=== PATIENT | male | born 1965 | race Caucasian/White ===

== ENCOUNTER 2024-08-16 15:51 | Inpatient (IN) ==
--- NOTE | 2024-08-16 16:00 | ED Triage Note ---
Date of Service August 16, 2024 Provider in Triage Author: Phil Suazo History of Present Illness This patient was briefly evaluated while in triage. An abbreviated physical exam was performed. This patient is a 59-year-old Male who presents to the ED for evaluation shortness of breath x 3 weeks dizziness/lightheaded with exertion, midsternal chest pain smoker denies PMHx-"hasn't seen a doctor in 30 years" Physical Exam GENERAL: NAD CARDIOVASCULAR: RRR RESPIRATORY: CTA ABDOMEN: BS x 4. Nontender to palpation. Initial orders for labs and / or imaging were placed and patient was placed in the waiting area until a bed is available. Please see further documentation for the full ED course.
[2024-08-16] MEDS: ASPIRIN 81 MG CHEW PO STA (16:14)
[2024-08-16 16:25] LABS: Basophils # (auto) 0.02 K/uL (0.00-0.20); Basophils % (auto) 0.2 %; Eosinophils # (auto) 0.02 K/uL (0.00-0.50); Eosinophils % (auto) 0.2 %; Hematocrit (blood only) 43.7 % (42.0-52.0); Hemoglobin 14.3 g/dl (14.0-18.0); Immature Granulocytes # (auto) 0.04 K/uL (0.01-0.20); Immature Granulocytes % (auto) 0.4 %; Lymphocytes # (auto) 1.02 K/uL (1.20-3.40); Lymphocytes % (auto) 9.7 %; Mean Corpuscular Hemoglobin 28.8 pg (25.0-34.0); Mean Corpuscular Hgb Conc 32.7 g/dL (32.0-36.0); Mean Corpuscular Volume 88.1 fL (80.0-100.0); Mean Platelet Volume 11.2 fL (9.4-12.4); Monocytes % (auto) 4.7 %; Neutrophils # (auto) 8.93 K/uL (1.40-6.50); Neutrophils % (auto) 84.8 %; Platelet Count 329 K/uL (130-400); RDW Coefficient of Variation 12.5 % (11.5-14.5); RDW Standard Deviation 40.5 fL (36.4-46.3); Red Blood Count 4.96 M/uL (4.70-6.10); White Blood Count 10.53 K/ul (4.8-10.8)
[2024-08-16 16:43] LABS: Albumin Globulin Ratio 1.3 (0.9-2); Albumin Level 4.3 gm/dl (3.4-5.0); BUN Creatinine Ratio 12.8 (10-20); Bilirubin,Total 0.5 mg/dl (0.2-1.0); Calcium 9.5 mg/dl (8.6-10.3); Creatinine Clr Calc Pharmacy 66.6 ml/min; Globulin 3.3 gm/dl (2.5-4.0); Potassium 4.3 mmol/L (3.5-5.1); Total Protein 7.6 gm/dl (6.0-8.3)
[2024-08-16 17:11] LABS: Adenovirus PCR Not Detected (NotDetected); Bordetella parapertussis PCR Not Detected (NotDetected); Bordetella pertussis PCR Not Detected (NotDetected); Chlamydia pneumoniae PCR Not Detected (NotDetected); Coronavirus 229E PCR Not Detected (NotDetected); Coronavirus CoV-2 (COVID19)PCR Not Detected (NotDetected); Coronavirus HKU1 PCR Not Detected (NotDetected); Coronavirus NL63 PCR Not Detected (NotDetected); Coronavirus OC43PCR Not Detected (NotDetected); Human Metapneumovirus PCR Not Detected (NotDetected); Influenza A PCR Not Detected (NotDetected); Influenza B PCR Not Detected (NotDetected); Mycoplasma pneumoniae PCR Not Detected (NotDetected); Parainfluenza Virus 1 PCR Not Detected (NotDetected); Parainfluenza Virus 2 PCR Not Detected (NotDetected); Parainfluenza Virus 3 PCR Not Detected (NotDetected); Parainfluenza Virus 4 PCR Not Detected (NotDetected); Respiratory Syncytial VirusPCR Not Detected (NotDetected); Rhinovirus/Enterovirus PCR Not Detected (NotDetected)
[2024-08-16 17:12] LABS: Troponin I High Sensitivity 3627.6 pg/ml (0-20)
[2024-08-16 17:13] LABS: D Dimer 880 ug/L FEU (0-500)
--- NOTE | 2024-08-16 17:29 | XRay Report ---
EXAM: XR chest 1V not portable CLINICAL HISTORY: Chest pain, sob TECHNIQUE: An X-ray image of the chest is obtained in AP projection. COMPARISON: No prior studies are available for comparison. FINDINGS: Pulmonary Parenchyma: Prominent right hilum and bilateral bronchovascular markings mainly on basal aspects suggestive of pulmonary congestion. Otherwise, lungs are clear bilaterally. No evidence of consolidation, collapse, or focal opacities. Clear costophrenic angles on both sides. Heart and Mediastinum: Mild cardiomegaly is noted. Bony Thorax: Bony thorax appears intact without fractures or deformities. Soft Tissues: Soft tissues overlying the chest wall are unremarkable. IMPRESSION: 1. Prominent right hilum and bilateral bronchovascular markings mainly on basal aspects suggestive of pulmonary congestion. 2. Mild cardiomegaly. Electronically signed by Marilee Norris 08-16-2024 5:28 PM
[2024-08-16] MEDS: OPTIRAY 320 125ml IV ONE (17:40)
--- NOTE | 2024-08-16 17:55 | CT Scan Report ---
Clinical history: Rule out pulmonary embolism Technique: Axial computed tomography images were obtained of the chest after the administration of intravenous contrast according to the CT angiogram protocol Findings: There is no definite sign of pulmonary embolism. There is a 4 mm left lower lobe nodule and there is a 6 mm right lower lobe nodule. There is a cluster of nodules in a centrilobular distribution with mild surrounding groundglass opacity in the right upper lobe. There are small bilateral pleural effusions. There is no pneumothorax. There is mild pulmonary edema. No endobronchial lesion is seen There is no mediastinal, hilar, or axillary adenopathy. The thoracic aorta appears unremarkable with no sign of aneurysm or dissection. There is no pericardial effusion The visualized upper abdomen appears unremarkable. No fracture is seen. No focal osseous lesion is evident Impression: 1. No definite sign of pulmonary embolism 2. Mild pulmonary edema and small bilateral pleural effusions 3. Cluster of nodules in the right upper lobe, likely due to pneumonia. There are bilateral lower lobe nodules as well. A follow-up chest CT is recommended in 3-6 months to ensure resolution Electronically signed by Josr Ndiaye 08-16-2024 5:54 PM
--- NOTE | 2024-08-16 18:10 | Emergency Department Note ---
Impression & Plan NSTEMI (non-ST elevated myocardial infarction), Abnormal CT scan, chest ED Provider Note NAME: PAULO PATEL AGE: 59 SEX: M : 1965 ARRIVES VIA: Walk-In INFORMANT: Patient, ED PROVIDER(S): Anahy Michaud MD CHIEF COMPLAINT: Chest pain, weakness HPI: This is a 59-year-old male presenting for 3 weeks of chest pain/shortness of breath and weakness. Patient notes that whenever he does physical exertion including walking, working on cars he begins feeling chest pain in the center of his chest physical burning sensation. He also notes exertional dyspnea. He notes weakness/pain in bilateral arms with exertion as well. He reports no previous cardiac history. ROS: See above HPI for pertinent positives & negatives. A total of 10 systems reviewed and were otherwise negative. PAST MEDICAL HISTORY: See Below PAST SURGICAL HISTORY: See Below FAMILY HISTORY: See Below SOCIAL HISTORY: See Below HOME MEDICATIONS: See Below ALLERGIES: See Below VITALS: See Below PHYSICAL EXAMINATION: General: resting comfortably in no acute distress Head: Normocephalic and atraumatic Eyes: Normal inspection, extraocular muscles intact Ear, nose, throat: Normal external exam Neck: Normal range of motion Respiratory: lungs clear to auscultation bilaterally Cardiovascular: Regular rate/rhythm, no murmur GI: soft, nontender, no guarding or rebound Extremities: nontender, moves all extremities Neuro: The patient awake and alert, appropriately conversive, no focal deficits, symmetric faces Skin: Warm, dry, and intact MEDICAL DECISION MAKING: This is a 59-year-old presenting for 3 weeks of shortness of breath, chest pain. I was advised to come to bedside as patient was in the waiting room with elevated reported over 3600. -At this time patient is currently chest pain-free. He received aspirin prior. -Will continue with CT as patient is D-dimer positive. Lower concern for this as he is not tachypneic, tachycardic or hypoxic -Chest Xray independently interpreted by me showing cardiomegaly no pneumothorax, focal opacity, or pleural effusions. -CTA reveals no acute PE, did show signs of pulmonary edema/bilateral pleural effusions. -ECG independently interpreted by me with normal sinus rhythm, rate of 75, left axis deviation, normal NV, normal QRS, normal QTc, no ST segment elevations consistent with STEMI criteria, marked T wave inversions in the inferior leads with slight ST depression -Patient started on IV heparin bolus and drip due to the elevated troponin, EKG concerning for ischemia. Patient currently chest pain-free however -Discussed care with jah Ralph for [facility] service for admission Differential diagnosis: ACS, PE, sepsis, pneumonia Independent History obtained from: Diagnostics interpreted by me: ECG: None Cardiac Monitoring: An order was placed for continuous cardiac monitoring. The monitor shows a rate of 71 with sinus rhythm. Critical Care Note: I have personally spent 35 minutes of critical care time in the direct management of this patient. This includes bedside care, interpretation of diagnostic studies, and testing, discussion with consultants, patient, and family members, and other required patient management activities. This 35 minutes is in excess of all separately billable procedures. Past Med/Surg History Problem List (Updated 08/17/24 @ 09:31 by Levi Nleson DO) Dyslipidemia Acute HFrEF (heart failure with reduced ejection fraction) Abnormal CT scan, chest NSTEMI (non-ST elevated myocardial infarction) Medical History Tobacco use Family History Mother Hypertension Coronary heart disease CABG in early 70's Father Coronary heart disease CABG ~age 72 Social History Smoking Status: Current every day smoker Tobacco Type: Cigarettes Cigarettes Per Day: 10 for 30 years; Second Hand Exposure: No; Do You Dip or Chew Tobacco: No; Tobacco Cessation Education Requested by Patient: No Hx Alcohol Use: No Hx Substance Use: No Preferred Language: Bengali Communication Ability: Effective Senior Buyer Required: No Beliefs That Will Affect Care: None Current Living Situation: Significant Other Other Information That Helps Us Care for You: No Feels Safe at Home: Yes Safety Concerns: Feels Safe At This Time Assistive Devices: Glasses Allergies Allergies Allergy/AdvReac Type Severity Reaction Status Date / Time No Known Allergies Allergy Verified 08/16/24 22:38 Home Meds Home Medications Medication Instructions Recorded Confirmed No Known Home Medications 08/16/24 08/16/24 Results & Data (ED) Vital Signs Vital Signs - 24 hr 08/16/24 15:57 08/16/24 17:22 08/16/24 17:24 Temperature 36.6 C Temperature Source Temporal Artery Scan Pulse Rate 100 H Pulse Rate [Apical] 98 H Pulse Rate from SpO2 Sensor Respiratory Rate 19 18 Respiratory Effort / Characteristics Non-Labored Spontaneous Respiratory Depth Normal Blood Pressure 165/121 H Blood Pressure [Left Arm] 157/116 H Blood Pressure Mean 135 Blood Pressure Mean [Left Arm] 129 Pulse Oximetry 97 98 97 Oxygen Delivery Method Room Air Room Air Room Air Sepsis Recent Fever Within 48 Hours No Sepsis New/Unexplained Change in Mental Status N/A Sepsis Action Taken by Nursing No Action Required 08/16/24 17:25 08/16/24 17:45 08/16/24 17:45 Temperature Temperature Source Pulse Rate 92 H 88 Pulse Rate [Apical] Pulse Rate from SpO2 Sensor 86 Respiratory Rate 19 Respiratory Effort / Characteristics Respiratory Depth Blood Pressure 141/108 H Blood Pressure [Left Arm] Blood Pressure Mean 115 Blood Pressure Mean [Left Arm] Pulse Oximetry 95 Oxygen Delivery Method Sepsis Recent Fever Within 48 Hours Sepsis New/Unexplained Change in Mental Status Sepsis Action Taken by Nursing 08/16/24 18:00 08/16/24 18:00 Temperature Temperature Source Pulse Rate 80 Pulse Rate [Apical] Pulse Rate from SpO2 Sensor 80 Respiratory Rate 13 Respiratory Effort / Characteristics Respiratory Depth Blood Pressure 130/93 Blood Pressure [Left Arm] Blood Pressure Mean 103 Blood Pressure Mean [Left Arm] Pulse Oximetry 95 Oxygen Delivery Method Sepsis Recent Fever Within 48 Hours Sepsis New/Unexplained Change in Mental Status Sepsis Action Taken by Nursing Laboratory Data 08/17/24 08:24 08/17/24 08:24 Lab Results 08/16/24 08/16/24 Range/Units 16:11 18:15 WBC 10.53 (4.8-10.8) K/ul RBC 4.96 (4.70-6.10) M/uL Hgb 14.3 (14.0-18.0) g/dl Hct 43.7 (42.0-52.0) % MCV 88.1 (80.0-100.0) fL MCH 28.8 (25.0-34.0) pg MCHC 32.7 (32.0-36.0) g/dL RDW Std Deviation 40.5 (36.4-46.3) fL RDW Coeff of Charles 12.5 (11.5-14.5) % Plt Count 329 (130-400) K/uL MPV 11.2 (9.4-12.4) fL Immature Gran % (Auto) 0.4 % Neut % (Auto) 84.8 % Lymph % (Auto) 9.7 % Knox % (Auto) 4.7 % Eos % (Auto) 0.2 % Baso % (Auto) 0.2 % Neut # (Auto) 8.93 H (1.40-6.50) K/uL Lymph # (Auto) 1.02 L (1.20-3.40) K/uL Knox # (Auto) 0.50 (0.11-0.59) K/uL Eos # (Auto) 0.02 (0.00-0.50) K/uL Baso # (Auto) 0.02 (0.00-0.20) K/uL Immature Gran # (Auto) 0.04 (0.01-0.20) K/uL PT 11.0 (9.0-12.0) Seconds INR 1.0 (0.9-1.1) APTT 27 (21-31) Seconds PTT Ratio 1.0 D-Dimer 880 H* (0-500) ug/L FEU Sodium 143 (136-145) mmol/L Potassium 4.3 (3.5-5.1) mmol/L Chloride 107 (98-107) mmol/L Carbon Dioxide 29 (21-32) mmol/L Anion Gap 7 (3-11) BUN 15 (6-23) mg/dl Creatinine 1.17 (0.6-1.4) mg/dl Est Cr Clr Drug Dosing 66.6 ml/min eGFR 72.26 BUN/Creatinine Ratio 12.8 (10-20) Glucose 102 H (70-99(Fasting)) mg/dl Calcium 9.5 (8.6-10.3) mg/dl Total Bilirubin 0.5 (0.2-1.0) mg/dl AST 24 (13-39) U/L ALT 16 (7-52) U/L Alkaline Phosphatase 36 (34-104) U/L Troponin I High Sens 3627.6 H* 3589.0 H* (0-20) pg/ml Total Protein 7.6 (6.0-8.3) gm/dl Albumin 4.3 (3.4-5.0) gm/dl Globulin 3.3 (2.5-4.0) gm/dl Albumin/Globulin Ratio 1.3 (0.9-2) Adenovirus (PCR) Not Detected (NotDetected) B. pertussis DNA (PCR) Not Detected (NotDetected) B.parapertussis DNA PCR Not Detected (NotDetected) C. pneumoniae DNA (PCR) Not Detected (NotDetected) Coronavirus OC43 (PCR) Not Detected (NotDetected) Coronavirus HKU1 (PCR) Not Detected (NotDetected) Coronavirus 229E (PCR) Not Detected (NotDetected) SARS-CoV-2 (PCR) Not Detected (NotDetected) Coronavirus NL63 (PCR) Not Detected (NotDetected) Human Metapneumovir PCR Not Detected (NotDetected) Influenza Type A (PCR) Not Detected (NotDetected) Influenza Type B (PCR) Not Detected (NotDetected) M. pneumoniae (PCR) Not Detected (NotDetected) Parainfluenza 1 (PCR) Not Detected (NotDetected) Parainfluenza 2 (PCR) Not Detected (NotDetected) Parainfluenza 3 (PCR) Not Detected (NotDetected) Parainfluenza 4 (PCR) Not Detected (NotDetected) RSV (PCR) Not Detected (NotDetected) Entero/Rhino (PCR) Not Detected (NotDetected) Administered Medications Aspirin (Aspirin 81 Mg Ectab) [facility] [place] Stop: 09/16/24 08:59 Last Admin: 08/17/24 08:03 Dose: 81 mg Documented By: JONATHAN Heparin Sodium/Dextrose (Heparin 41132 Unit/500 Ml D5w) 25,000 units in 500 mls @ 18 mls/hr IV .Q24H [facility]; Protocol Stop: 09/15/24 18:14 Last Titration: 08/17/24 07:08 Dose: 900 units/hr, 18 mls/hr Documented By: ZAC Co-signed By: JONATHAN Titration: 08/17/24 01:14 Dose: 900 units/hr, 18 mls/hr Documented By: CF Co-signed By: KRYSTINA Admin: 08/16/24 18:51 Dose: 850 units/hr, 17 mls/hr Documented By: MATILDA Co-signed By: Discontinued Medications Aspirin (Aspirin 81 Mg Chew) 324 mg PO NOW STA Stop: 08/16/24 16:01 Last Admin: 08/16/24 16:14 Dose: 324 mg Documented By: ORLY Heparin Sodium (Porcine) (Heparin Sod (Porcine) 1000 Unit/Ml) 1 units IV NOW ONE Stop: 08/16/24 18:15 Last Admin: 08/16/24 18:51 Dose: 4,000 units Documented By: MATILDA Co-signed By: HUNTER Heparin Sodium/Dextrose (Heparin Iv Adult Wt-Based Low-Dose W/ Initial Bolus Protocol) 1 each IV NOW STA; Protocol Stop: 08/16/24 18:00 Last Admin: 08/16/24 19:36 Dose: Not Given Documented By: HUNTER Ceftriaxone Sodium (Rocephin) 2,000 mg in 50 mls @ 100 mls/hr IV NOW STA Stop: 08/16/24 19:49 Last Infusion: 08/16/24 22:05 Dose: Infused Documented By: Admin: 08/16/24 20:01 Dose: 100 mls/hr Documented By: CTK Ioversol (Optiray 320 125ml) 119 ml IV ONCE ONE Stop: 08/16/24 17:40 Last Admin: 08/16/24 17:40 Dose: 119 ml Documented By: GES Imaging Data Radiologist's Impression: Chest X-Ray 08/16/24 16:00 EXAM: XR chest 1V not portable CLINICAL HISTORY: Chest pain, sob TECHNIQUE: An X-ray image of the chest is obtained in AP projection. COMPARISON: No prior studies are available for comparison. FINDINGS: Pulmonary Parenchyma: Prominent right hilum and bilateral bronchovascular markings mainly on basal aspects suggestive of pulmonary congestion. Otherwise, lungs are clear bilaterally. No evidence of consolidation, collapse, or focal opacities. Clear costophrenic angles on both sides. Heart and Mediastinum: Mild cardiomegaly is noted. Bony Thorax: Bony thorax appears intact without fractures or deformities. Soft Tissues: Soft tissues overlying the chest wall are unremarkable. IMPRESSION: 1. Prominent right hilum and bilateral bronchovascular markings mainly on basal aspects suggestive of pulmonary congestion. 2. Mild cardiomegaly. Electronically signed by Marilee Norris 08-16-2024 5:28 PM Chest CTA 08/16/24 17:29 Clinical history: Rule out pulmonary embolism Technique: Axial computed tomography images were obtained of the chest after the administration of intravenous contrast according to the CT angiogram protocol Findings: There is no definite sign of pulmonary embolism. There is a 4 mm left lower lobe nodule and there is a 6 mm right lower lobe nodule. There is a cluster of nodules in a centrilobular distribution with mild surrounding groundglass opacity in the right upper lobe. There are small bilateral pleural effusions. There is no pneumothorax. There is mild pulmonary edema. No endobronchial lesion is seen There is no mediastinal, hilar, or axillary adenopathy. The thoracic aorta appears unremarkable with no sign of aneurysm or dissection. There is no pericardial effusion The visualized upper abdomen appears unremarkable. No fracture is seen. No focal osseous lesion is evident Impression: 1. No definite sign of pulmonary embolism 2. Mild pulmonary edema and small bilateral pleural effusions 3. Cluster of nodules in the right upper lobe, likely due to pneumonia. There are bilateral lower lobe nodules as well. A follow-up chest CT is recommended in 3-6 months to ensure resolution Electronically signed by Josr Ndiaye 08-16-2024 5:54 PM Discharge Plan Visit Data Chief Complaint: Shortness of Breath/Dyspnea Stated Complaint: SOB, CHEST, WEAKNESS, ARM PAIN, LIGHTHEADED, ED Provider: Anahy Michaud Discharge Problem: NSTEMI (non-ST elevated myocardial infarction), Abnormal CT scan, chest Patient Disposition: Admitted As Inpatient Discharge Instructions Interventions: ED Discharge Assessment Last Done: 08/16/24 21:19
--- NOTE | 2024-08-16 18:25 | History & Physical Report ---
Date of Service August 16, 2024 Assessment & Plan (1) NSTEMI (non-ST elevated myocardial infarction): Plan: Patient is 59-year-old male with PMH tobacco use presented to ER with c/o exertional CP, SOB, dizziness, bilateral forearm pain x 3 weeks that resolves with rest In ER afebrile, P: 100, R: 18, BP 165/121, 97% on room air Negative respiratory biofire panel D-dimer: 880 Troponin: 3627 EKG: Q waves septal anterior and T wave inversion lateral leads per my interpretation CXR: . Prominent right hilum and bilateral bronchovascular markings mainly on basal aspects suggestive of pulmonary congestion. Mild cardiomegaly. CTA Chest: No definite sign of pulmonary embolism. Mild pulmonary edema and small bilateral pleural effusions. Cluster of nodules in the right upper lobe, likely due to pneumonia. There are bilateral lower lobe nodules as well. In ER given aspirin 324mg po and IV heparin started No CP while in ER Monitor Vitals Repeat EKG in am Will trend troponin Continue IV Heparin Echo Lipid panel in am Aspirin NPO midnight Cardiology consult. Dr Nelson suggest NPO midnight CBC, BMP in am (2) Tobacco use: Plan: Attempting smoking cessation Denies nicotine patch (3) Abnormal CT scan, chest: Plan: CTA Chest: Cluster of nodules in the right upper lobe, likely due to pneumonia. There are bilateral lower lobe nodules as well. Denies fever/chills, cough Will start Rocephin to cover possible pneumonia Will need a follow-up chest CT in 3-6 months to recheck nodules DVT Prophylaxis On IV Heparin Admit PCU Full Code as per discussion with pt Does not follow with for routine care Pt was seen and care coordinated with Dr Reynoso. See addendum I spent a total of 60 minutes reviewing notes, outpatient records, labs, medication, coordinating, documenting and providing care for this patient excluding time spent in the performance of separately billed services and excluding time spent by another provider/QHP. History of Present Illness Chief Complaint: CP Primary Care Provider: NO PCP Patient is 59-year-old male with PMH tobacco use presented to ER with c/o exertional CP x 3 weeks. States has not been to the doctor in over 7 years. Prior to that he denies any known diagnosis of HTN or dyslipidemia or diabetes. Reports exertional shortness of breath and anterior chest pain with associated dizziness and bilateral forearm aching that occurs with exertion and resolves after 5 minutes of rest. 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 States over the past 3 weeks symptoms has progressed and past couple days getting symptoms with simple ADLs such as dressing himself. Symptoms still resolved in approximately 5 minutes after rest. Denies any active CP while in ER. Denies fever/chills, diaphoresis, N/V/D/C, CROSS, syncope, vision changes, neck pain, palpitations, cough, sore throat, choking, otalgia, rhinorrhea, abdominal pain, paresthesias, extremity weakness, extremity edema, rashes, urinary symptoms. Allergies Allergy/AdvReac Type Severity Reaction Status Date / Time N Allergy Unknown Uncoded 08/17/02 15:38 NONE Allergy Unknown Uncoded 08/17/02 15:38 Past Med/Surg History Problem List (Updated 08/16/24 @ 19:36 by Colleen Greene PA-C) Abnormal CT scan, chest NSTEMI (non-ST elevated myocardial infarction) Medical History Tobacco use Family History (Updated 08/16/24 @ 19:34 by Colleen Greene PA-C) Mother Hypertension Coronary heart disease CABG in early 70's Father Coronary heart disease CABG ~age 72 Social History (Updated 08/16/24 @ 19:34 by Colleen Greene PA-C) Smoking Status: Never smoker Cigarettes Per Day: 0.5-1ppd. Cutting back to 0.5ppd; Hx Alcohol Use: No Hx Substance Use: No Preferred Language: Occitan Feels Safe at Home: Yes Review of Systems Review of Systems: All systems reviewed & are unremarkable except as noted in HPI & below Physical Exam Physical Exam: General: no acute distress, WDWN Head: normocephalic, atraumatic Eyes: conjunctiva non-injected, anicteric ENT: normal inspection external ears, nose, mucous membranes moist Neck: supple, trachea midline Lungs: clear, no respiratory distress, no wheezing/rhonchi/rales CV: RRR, no murmur, no pretibial edema Abd: normal BS, soft, non-tender Ext: no cyanosis, no calf tenderness Neuro: A&O x 3, no focal deficits noted, normal affect Skin: warm, dry Results & Data Results & Data Vital Signs (Past 12 Hours) Vital Signs Temp Pulse Pulse Resp BP BP Pulse Ox 08/16/24 17:25 92 H 08/16/24 17:24 98 H 18 157/116 H 97 08/16/24 17:22 98 08/16/24 15:57 36.6 C 100 H 19 165/121 H 97 O2 Del Method 08/16/24 17:25 08/16/24 17:24 Room Air 08/16/24 17:22 Room Air 08/16/24 15:57 Room Air Laboratory Results Short CBC 08/16/24 Range/Units 16:11 WBC 10.53 (4.8-10.8) K/ul Hgb 14.3 (14.0-18.0) g/dl Hct 43.7 (42.0-52.0) % Plt Count 329 (130-400) K/uL BMP 08/16/24 16:11 Sodium 143 Potassium 4.3 Chloride 107 Carbon Dioxide 29 BUN 15 Creatinine 1.17 Glucose 102 H Calcium 9.5 Liver Function 08/16/24 Range/Units 16:11 Total Bilirubin 0.5 (0.2-1.0) mg/dl AST 24 (13-39) U/L ALT 16 (7-52) U/L Alkaline Phosphatase 36 (34-104) U/L Albumin 4.3 (3.4-5.0) gm/dl Diagnostic Findings Chest X-Ray 08/16/24 16:00 EXAM: XR chest 1V not portable CLINICAL HISTORY: Chest pain, sob TECHNIQUE: An X-ray image of the chest is obtained in AP projection. COMPARISON: No prior studies are available for comparison. FINDINGS: Pulmonary Parenchyma: Prominent right hilum and bilateral bronchovascular markings mainly on basal aspects suggestive of pulmonary congestion. Otherwise, lungs are clear bilaterally. No evidence of consolidation, collapse, or focal opacities. Clear costophrenic angles on both sides. Heart and Mediastinum: Mild cardiomegaly is noted. Bony Thorax: Bony thorax appears intact without fractures or deformities. Soft Tissues: Soft tissues overlying the chest wall are unremarkable. IMPRESSION: 1. Prominent right hilum and bilateral bronchovascular markings mainly on basal aspects suggestive of pulmonary congestion. 2. Mild cardiomegaly. Electronically signed by Marilee Norris 08-16-2024 5:28 PM Chest CTA 08/16/24 17:29 Clinical history: Rule out pulmonary embolism Technique: Axial computed tomography images were obtained of the chest after the administration of intravenous contrast according to the CT angiogram protocol Findings: There is no definite sign of pulmonary embolism. There is a 4 mm left lower lobe nodule and there is a 6 mm right lower lobe nodule. There is a cluster of nodules in a centrilobular distribution with mild surrounding groundglass opacity in the right upper lobe. There are small bilateral pleural effusions. There is no pneumothorax. There is mild pulmonary edema. No endobronchial lesion is seen There is no mediastinal, hilar, or axillary adenopathy. The thoracic aorta appears unremarkable with no sign of aneurysm or dissection. There is no pericardial effusion The visualized upper abdomen appears unremarkable. No fracture is seen. No focal osseous lesion is evident Impression: 1. No definite sign of pulmonary embolism 2. Mild pulmonary edema and small bilateral pleural effusions 3. Cluster of nodules in the right upper lobe, likely due to pneumonia. There are bilateral lower lobe nodules as well. A follow-up chest CT is recommended in 3-6 months to ensure resolution Electronically signed by Josr Ndiaye 08-16-2024 5:54 PM Supervising Physician Co-Signing Physician Notes 59-year-old male with current tobacco use [smokes 1/2 packs a day for about 30 years] and last PCP visit more than 7 years ago presents today with exertional shortness of breath and chest pain since about 3 weeks, gradually worsening to the point that he got shortness of breath and chest pain with minimal activity today and hence decided to come to the ED. He also notes radiation of discomfort to bilateral forearms. Otherwise denies fever/flulike illness/sore throat/cough. Labs reviewed, CBC fairly WNL, D-dimer elevated, renal function test WNL, glucose slightly elevated, LFT WNL, troponin 3627 then 3589. Resp biofire neg. EKG w/ 1mm elevation in V1 and V2. CTA Chest neg for PE. w/ mild pul edema and b/l pl effusion. s/o RUL nodule /? pna and b/l lower lobe nodule. f/u CT chest in 3-6 months. Pt notified of need of f/u ct chest during bedside exam. Pt denies cough, sore throat or recent flu like illness. NSTEMI: trop elevated, no current chest pain. c/w hep drip. npo midnight. cardio consult. echo abt cta chest/?pna: see above, will use rocephin x 5 days, f/u ct chest in 3 months. On Exam: GENERAL: Alert and oriented x3. NAD, on RA. HEENT: No pallor, no icterus. Pupils equal, round and reactive to light. Oral mucosa moist. NECK: No JVD, no neck masses. HEART: S1 and S2 heard. Regular rate and rhythm. No murmur, no gallop. RESPIRATORY SYSTEM: Normal AP diameter. No accessory muscle use. No wheezing, no crackles. ABDOMEN: Soft, bowel sounds present, nontender, no distention. CENTRAL NERVOUS SYSTEM: No facial droop. Speech is clear. Obeys simple commands. Moves extremities. EXTREMITIES: No edema, no erythema seen. I have seen and examined the patient and have discussed the case with the provider above. I agree with the assessment and plan as stated. Time spent: 25 min
[2024-08-16] MEDS: HEPARIN 25000 UNIT/500 ML D5W 25,000 UNITS/500 ML BAG IV SCH (18:51)
[2024-08-16] MEDS: HEPARIN SOD (PORCINE) 1000 UNIT/ML IV ONE (18:51)
[2024-08-16 19:07] LABS: Partial Thromboplastin Time 27 Seconds (21-31)
[2024-08-16] MEDS: Heparin IV Adult Wt-Based Low-Dose w/ INITIAL Bolus Protocol IV STA (19:36)
[2024-08-16] MEDS: cefTRIAXone SODIUM 2,000 MG/50 ML BAG IV STA (20:01)
[2024-08-16] MEDS ORDERED: ONDANSETRON INJ 2 MG/ML 2 ML VIAL IV PRN (22:21)
[2024-08-16] MEDS ORDERED: ACETAMINOPHEN 325 MG TAB PO PRN (22:21)
[2024-08-16] MEDS ORDERED: POLYETHYLENE (MIRALAX) 17 GM PACK PO PRN (22:21)
[2024-08-16] MEDS ORDERED: NITROGLYCERIN SL 0.4 MG/TAB TAB SL PRN (22:21)
[2024-08-17 01:07] LABS: ANTI-Xa, UFH(UnfractionatedHep 0.21 IU/ml (0.3-0.7)
[2024-08-17] MEDS: ASPIRIN 81 MG ECTAB PO SCH (08:03)
[2024-08-17 08:44] LABS: Hematocrit (blood only) 39.2 % (42.0-52.0); Mean Corpuscular Hemoglobin 29.5 pg (25.0-34.0); Mean Corpuscular Hgb Conc 33.2 g/dL (32.0-36.0); Mean Corpuscular Volume 88.9 fL (80.0-100.0); Mean Platelet Volume 11.5 fL (9.4-12.4); Platelet Count 268 K/uL (130-400); RDW Coefficient of Variation 12.5 % (11.5-14.5); RDW Standard Deviation 41.2 fL (36.4-46.3); Red Blood Count 4.41 M/uL (4.70-6.10)
--- NOTE | 2024-08-17 08:47 | Cardiology Consultation ---
Date of Consultation August 17, 2024 Assessment & Plan (1) NSTEMI (non-ST elevated myocardial infarction): EKG and echocardiographic findings as well as description of patient's symptoms suggest late presentation. Continue aspirin, unfractionated heparin, add metoprolol and atorvastatin. Patient asymptomatic at present at rest and is able to lie supine. Screening hemoglobin A1c has just come back and is minimally elevated at 5.7% Plan for coronary angiography today to determine coronary anatomy and next best of treatment. Depending upon findings, viability assessment of the septum and LV apex may be indicated. (2) Acute HFrEF (heart failure with reduced ejection fraction): Patient with left ventricular systolic dysfunction LVEF in the range of 20 to 25%, diastolic dysfunction evidence of elevated filling pressure on echocardiogram. Mild pulmonary edema on chest CT. He is not overtly volume overloaded on exam and is able to lie supine. He already received a dose of iodinated contrast for the CT last evening. At present instead of administering IV fluids or administering diuretics, would allow his intake/output to run even in preparation for cardiac catheterization. Start metoprolol succinate 25 mg daily. Further medications such as PRESTON/ARB/or Arni to be considered in the near future. (3) Dyslipidemia: LDL 121 mg/dL. Goal for this high risk patient felt to be less than 55 mg/dL. Add atorvastatin 80 mg daily. (4) Abnormal CT scan, chest: Radiology report of CT of the chest describes a 4 mm left lower lobe nodule and a 6 mm right lower lobe nodule as well as a cluster of nodules in the centril obular distribution surrounding a mild groundglass opacity in the right upper lobe. Patient is a smoker, ceased 3 weeks ago. Clinical presentation suggests myocardial ischemia and CHF rather than clinical pneumonia. High procalcitonin screen. If negative, consider discontinuing antibiotics. Will need a follow-up CT in 3 to 6 months per radiology recommendation. 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 He states that approximately 3 weeks ago he started having symptoms of shortness of breath, lightheadedness and a burning sensation in his chest with physical activity that he does with his occupation such as lifting equipment or lifting tires. This progressed and even included forearm discomfort. At first he thought that he just had a viral illness but when symptoms persisted and increasingly interfered with his being able to do his work he became concerned and sought emergency room treatment yesterday. Currently he is free of discomfort with most recent symptoms having occurred yesterday with exertion in the morning. He states that he has not been to the doctor in about 7 years. 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 He quit cigarette smoking 3 weeks ago with the onset of his recent symptoms having previously smoked 1/2 pack/day for many years before that He denies regular alcohol use may have a few drinks at a gathering such as a [employer] Allergies Allergy/AdvReac Type Severity Reaction Status Date / Time No Known Allergies Allergy Verified 08/16/24 22:38 Home Medications Medication Instructions Recorded Confirmed Type No Known Home Medications 08/16/24 08/16/24 History Patient History Medical History Tobacco use Family History Mother Hypertension Coronary heart disease CABG in early 70's Father Coronary heart disease CABG ~age 72 Social History Smoking Status: Current every day smoker Tobacco Type: Cigarettes Cigarettes Per Day: 10 for 30 years; Second Hand Exposure: No; Do You Dip or Chew Tobacco: No; Tobacco Cessation Education Requested by Patient: No Hx Alcohol Use: No Hx Substance Use: No Preferred Language: Ecuadorean Communication Ability: Effective Broach Grinder Required: No Beliefs That Will Affect Care: None Current Living Situation: Significant Other Other Information That Helps Us Care for You: No Feels Safe at Home: Yes Safety Concerns: Feels Safe At This Time Assistive Devices: Glasses Review of Systems Review of Systems: All systems reviewed & are unremarkable except as noted in HPI & below Physical Exam Physical Exam: Temp Pulse Resp BP Pulse Ox O2 Del Method 36.7 C 71 18 131/84 94 Room Air 08/17/24 07:35 08/17/24 07:35 08/17/24 07:35 08/17/24 07:35 08/17/24 07:35 08/17/24 07:35 General: no acute distress and stated age Eyes: conjunctiva are pink and non-injected, sclera clear Neck: normal jugular venous pulse, no hepatojugular reflux Chest: normal shape and normal respiratory effort Lungs: clear to auscultation and percussion Cardiac Exam: - regular heart sounds, no murmurs, rubs, or gallops, no jugular venous distention Abdomen: abdomen soft, non-tender, no abnormal masses and no hepatosplenomegaly Musculoskeletal: no gait disturbance, no weakness Extremities: no edema and no cyanosis Neuro:awake, conversant, follows commands, no focal motor deficits Psych: appropriate affect and insight. Results & Data Vital Signs (Past 12 Hours) Vital Signs Temp Pulse Pulse Resp BP BP Pulse Ox 08/17/24 07:35 36.7 C 71 18 131/84 94 08/17/24 02:50 36.5 C 71 18 125/81 94 08/16/24 23:52 74 08/16/24 22:21 08/16/24 22:21 08/16/24 22:21 36.7 C 90 20 160/122 H 95 08/16/24 21:19 36.8 C 74 22 126/99 95 08/16/24 21:08 74 22 126/99 95 Pulse Ox O2 Del Method O2 Del Method 08/17/24 07:35 Room Air 08/17/24 02:50 Room Air 08/16/24 23:52 08/16/24 22:21 95 Room Air 08/16/24 22:21 Room Air 08/16/24 22:21 Room Air 08/16/24 21:19 Room Air 08/16/24 21:08 Room Air Laboratory Results Cardiac Enzymes 08/16/24 08/16/24 08/17/24 Range/Units 16:11 18:15 00:27 AST 24 (13-39) U/L Troponin I High Sens 3627.6 H* 3589.0 H* 4124.7 H* (0-20) pg/ml Coagulation 08/16/24 Range/Units 16:11 PT 11.0 (9.0-12.0) Seconds APTT 27 (21-31) Seconds CBC 08/16/24 08/17/24 Range/Units 16:11 08:24 WBC 10.53 7.60 (4.8-10.8) K/ul RBC 4.96 4.41 L (4.70-6.10) M/uL Hgb 14.3 13.0 L (14.0-18.0) g/dl Hct 43.7 39.2 L (42.0-52.0) % Plt Count 329 268 (130-400) K/uL Neut # (Auto) 8.93 H (1.40-6.50) K/uL Lymph # (Auto) 1.02 L (1.20-3.40) K/uL [place] # (Auto) 0.50 (0.11-0.59) K/uL Eos # (Auto) 0.02 (0.00-0.50) K/uL Baso # (Auto) 0.02 (0.00-0.20) K/uL Comprehensive Metabolic Panel 08/16/24 Range/Units 16:11 Sodium 143 (136-145) mmol/L Potassium 4.3 (3.5-5.1) mmol/L Chloride 107 (98-107) mmol/L Carbon Dioxide 29 (21-32) mmol/L BUN 15 (6-23) mg/dl Creatinine 1.17 (0.6-1.4) mg/dl Glucose 102 H (70-99(Fasting)) mg/dl Calcium 9.5 (8.6-10.3) mg/dl AST 24 (13-39) U/L ALT 16 (7-52) U/L Alkaline Phosphatase 36 (34-104) U/L Total Protein 7.6 (6.0-8.3) gm/dl Albumin 4.3 (3.4-5.0) gm/dl Lipid Panel , 08/17/24 Total cholesterol 177 Triglycerides 97 LDL 121 HDL 37 Intake and Output 08/16/24 08/17/24 08/17/24 22:59 06:59 14:59 Intake Total 50 / 158.517 108.517 / 158.517 106.2 / 106.2 Balance 50 / 158.517 108.517 / 158.517 106.2 / 106.2 Intake: IV 50 / 158.517 108.517 / 158.517 106.2 / 106.2 Heparin 58323 Unit/500 ml D5w 108.517 / 108.517 106.2 / 106.2 25,000 units In 500 ml @ 850 UNITS/HR 17 mls/hr IV .Q24H ROSEMARIE Rx#:[id number] cefTRIAXone SODIUM 2,000 mg In 50 / 50 50 ml @ 100 mls/hr IV NOW STA Rx#:[id number] Other: Other Intake Source npo Weight 71.764 kg 72 kg Weight Measurement Method Built in [facility] Diagnostic Findings EKG performed on arrival in 08/16/2024 at 1611 and interpreted independently: Sinus tachycardia at 102 bpm with noted age-indeterminate anteroseptal infarct pattern with Q waves in V1-V3 and deep T wave inversions in the lateral precordial leads as well as the lateral leads I and aVL. Repeat EKG tracing performed today 08/17/2024 at 4:49 AM interpreted Independently: Sinus rhythm at 75 bpm, age-indeterminate septal infarct pattern noted with Q waves once again demonstrated in leads V1-V3, and deep T wave inversions with associated [address] segment depression in the lateral leads. Summary transthoracic echocardiogram performed 08/17/2024: The left ventricle is mildly dilated. Mild concentric hypertrophy is noted in the segments with normal wall motion. There is diffuse thinning of the posterior wall. There is a large sized apical, septal, anteroseptal, inferior, and posterior wall motion abnormality with hypokinesis to akinesis of the segments. Left ventricular systolic function is severely reduced. Left Ventricular Ejection Fraction = 20-25%. Diastolic dysfunction, Grade II (pseudonormalization pattern) with Doppler evidence of increased left-sided filling pressure. There is mild tricuspid regurgitation. The pulmonary systolic pressure is estimated to be 60 mmHg (moderate to severely elevated). The aortic root is normal size. The proximal ascending order was not visualized adequately enough to allow for measurement. Findings compatible with ischemic cardiomyopathy with wall motion abnormalities suggestive of multivessel coronary disease. No previous studies are available for direct comparison. CTA of the chest performed 08/16/2024 revealed no pulmonary embolism, mild pulmonary edema and small pleural effusions, clustered nodules in the right upper lobe perhaps related to pneumonia cardiology report
[2024-08-17 09:10] LABS: ANTI-Xa, UFH(UnfractionatedHep 0.21 IU/ml (0.3-0.7)
[2024-08-17 09:16] LABS: BUN Creatinine Ratio 13.5 (10-20); Calcium 8.6 mg/dl (8.6-10.3); Chol HDL Ratio 4.8 (0-5); Creatinine Clr Calc Pharmacy 84.6 ml/min; Potassium 4.3 mmol/L (3.5-5.1)
[2024-08-17 09:30] LABS: Troponin I High Sensitivity 4356.2 pg/ml (0-20)
[2024-08-17 09:31] LABS: Estimated Average Glucose 117 mg/dl; Hemoglobin A1C 5.7 % (4.5-5.6)
[2024-08-17] MEDS: ATORVASTATIN 40 MG TAB PO SCH (10:24)
[2024-08-17] MEDS: METOPROLOL SUCC 25MG EXT REL TAB PO SCH (10:25)
[2024-08-17] MEDS: DOXYCYCLINE HYCLATE 100 MG in DEXTROSE 5% MINI-B 100 ML IV SCH (10:25)
[2024-08-17] MEDS: niCARdipine 2,000 MCG/20 ML SYR ONE (12:23)
[2024-08-17] MEDS: LIDOCAINE 1% LOCAL 20 ML VIAL ONE (12:24)
[2024-08-17] MEDS: NITROGLYCERIN/D5W 100MCG/ML 20ML SYR ONE (12:24)
[2024-08-17] MEDS: fentaNYL citrate PF 100 MCG/2 ML VIAL ONE (13:15)
[2024-08-17] MEDS: MIDAZOLAM HCL 1 MG/ML 2ML VIAL ONE (13:15)
[2024-08-17] MEDS: HEPARIN (PORCINE) 1000 UNIT/ML 10 ML (CATH LAB USE ONLY) ONE (13:15)
[2024-08-17] MEDS: OPTIRAY 350 ONE (13:15)
--- NOTE | 2024-08-17 14:04 | Pre Anesthesia Assessment ---
Date of Service August 17, 2024 Pre Sedation Assessment Vital Signs Temp Pulse Pulse Resp BP BP Pulse Ox 08/17/24 13:45 67 14 110/82 96 08/17/24 13:27 73 18 109/84 96 08/17/24 10:59 86 18 125/91 96 08/17/24 07:45 08/17/24 07:35 98.1 F 71 18 131/84 94 08/17/24 05:47 71 08/17/24 02:50 97.7 F 71 18 125/81 94 08/16/24 23:52 74 08/16/24 22:21 08/16/24 22:21 08/16/24 22:21 98.1 F 90 20 160/122 H 95 08/16/24 21:19 98.2 F 74 22 126/99 95 08/16/24 21:08 74 22 126/99 95 08/16/24 20:18 79 20 135/88 94 08/16/24 19:46 83 26 H 129/91 93 08/16/24 19:00 83 20 93 08/16/24 19:00 85 24 137/96 97 08/16/24 18:00 130/93 08/16/24 18:00 80 13 95 08/16/24 17:45 88 19 95 08/16/24 17:45 141/108 H 08/16/24 17:25 92 H 08/16/24 17:24 98 H 18 157/116 H 97 08/16/24 17:22 98 08/16/24 15:57 97.9 F 100 H 19 165/121 H 97 Pulse Ox O2 Del Method O2 Del Method 08/17/24 13:45 Room Air 08/17/24 13:27 Room Air 08/17/24 10:59 Room Air 08/17/24 07:45 Room Air 08/17/24 07:35 Room Air 08/17/24 05:47 08/17/24 02:50 Room Air 08/16/24 23:52 08/16/24 22:21 95 Room Air 08/16/24 22:21 Room Air 08/16/24 22:21 Room Air 08/16/24 21:19 Room Air 08/16/24 21:08 Room Air 08/16/24 20:18 08/16/24 19:46 08/16/24 19:00 08/16/24 19:00 08/16/24 18:00 08/16/24 18:00 08/16/24 17:45 08/16/24 17:45 08/16/24 17:25 08/16/24 17:24 Room Air 08/16/24 17:22 Room Air 08/16/24 15:57 Room Air Cardiovascular + regular rhythm Respiratory normal respiratory effort, lungs clear to auscultation Pre-Sedation Airway Assessment Smoking Status: Current every day smoker Hx Sleep Apnea: No Short, Thick Neck: No Thyromental Distance: > or= 3.5 Finger Breadths Oral Cavity: + WNL Mallampati Class: III ASA: ASA3 NPO Status Date of Last Intake of Fluids: 08/16/24 Date of Last Intake of Solid Food: 08/16/24 Procedure Planning Contraindications for Sedation: none Current Medications Reviewed: Yes Notes The planned sedation has been discussed with the patient. Informed Consent was obtained. I have identified the patient, determined the appropriateness of sedation and have assessed the patient immediately prior to the procedure. All medicine(s) and interventions are by my order.
--- NOTE | 2024-08-17 14:05 | Post Anesthesia Assessment ---
Date of Service August 17, 2024 Post Sedation Assessment Vital Signs Temp Pulse Pulse Resp BP BP Pulse Ox 08/17/24 13:45 67 14 110/82 96 08/17/24 13:27 73 18 109/84 96 08/17/24 10:59 86 18 125/91 96 08/17/24 07:45 08/17/24 07:35 98.1 F 71 18 131/84 94 08/17/24 05:47 71 08/17/24 02:50 97.7 F 71 18 125/81 94 08/16/24 23:52 74 08/16/24 22:21 08/16/24 22:21 08/16/24 22:21 98.1 F 90 20 160/122 H 95 08/16/24 21:19 98.2 F 74 22 126/99 95 08/16/24 21:08 74 22 126/99 95 08/16/24 20:18 79 20 135/88 94 08/16/24 19:46 83 26 H 129/91 93 08/16/24 19:00 83 20 93 08/16/24 19:00 85 24 137/96 97 08/16/24 18:00 130/93 08/16/24 18:00 80 13 95 08/16/24 17:45 88 19 95 08/16/24 17:45 141/108 H 08/16/24 17:25 92 H 08/16/24 17:24 98 H 18 157/116 H 97 08/16/24 17:22 98 08/16/24 15:57 97.9 F 100 H 19 165/121 H 97 Pulse Ox O2 Del Method O2 Del Method 08/17/24 13:45 Room Air 08/17/24 13:27 Room Air 08/17/24 10:59 Room Air 08/17/24 07:45 Room Air 08/17/24 07:35 Room Air 08/17/24 05:47 08/17/24 02:50 Room Air 08/16/24 23:52 08/16/24 22:21 95 Room Air 08/16/24 22:21 Room Air 08/16/24 22:21 Room Air 08/16/24 21:19 Room Air 08/16/24 21:08 Room Air 08/16/24 20:18 08/16/24 19:46 08/16/24 19:00 08/16/24 19:00 08/16/24 18:00 08/16/24 18:00 08/16/24 17:45 08/16/24 17:45 08/16/24 17:25 08/16/24 17:24 Room Air 08/16/24 17:22 Room Air 08/16/24 15:57 Room Air Recovery Score Activity: Moves 4 extremities Respiration: Deep Breath/Cough Circulation: +/-20% PreAnes Value Consciousness: Fully Awake Oxygen Saturation: > 92% On Room Air Post Anesthesia Score: 10 Discharge Sedation Level of Care: Fast Track Phase II Post Sedation Plan On clinical assessment, the patient appears to have tolerated the sedation without complications. Patient is recovering as anticipated. Patient will continue to be monitored by nursing and may be discharged when sedation discharge criteria are met per below protocol. Upon Completions of procedure up to 15 minutes continue every 5 minute vital signs and the P.A.R. score; then discharge to a Phase I or Fast Track to Phase II per the following guidelines: * Discharge Patient to appropriate Phase II area if PAR is 8 or greater or return to pre- procedure baseline. The post - procedure orders will be as directed. * If PAR score is less than 8 or not return to pre-procedure baseline then patient will follow Phase I monitoring till PAR is reached for Phase II. The Phase I may be done in procedure room or may call to secure a Phase I area. * If naloxone or flumazenil are used for reversal, hold in Phase I for continued monitoring from when last reversal dose was given for a minimum of 60 minutes or longer pending the nurse and/or physician discretion of patient condition before discharge to Phase II. Please call the Sedation Physician to re-evaluate and complete post-note for discharge to Phase II area. Do NOT discharge from procedure sedation or Phase 1 until post- sedation evaluation note is complete by procedure /sedation MD Sedation Discharge Instructions to be given to the patient at discharge to home.
--- NOTE | 2024-08-17 14:14 | Cardiac Catheterization ---
[facility] Data: Community Health Navigator Cardiac Status Clinical evaluation leading to the procedure CAD Presenation: Non STEMI Diagnostic Physicians Name: Elijah Brunson MD Closure Device Recommendations: Medical Therapy and/or Counseling and CABG Cardiac Cath Procedure Full Procedure Date August 17, 2024 Pre-Procedure Diagnosis Pre-Procedure Diagnosis: Non STEMI and Cardiomyopathy AUC Score AUC Score: 7 Post-Procedure Diagnosis Post-Procedure Diagnosis: Severe CAD and Elevated Intracardiac Pressures Procedure(s) Performed Procedure(s) Performed: Coronary Angiography and Left Heart Cath Annual Campaign Manager Elijah Brunson MD Application Penetration Tester(s) See Estimated Blood Loss Estimated Blood Loss: 10 Medication(s) Medication(s): Fentanyl, Lidocaine 1%, Nicardipine, Nitroglycerin and Versed Summary of Findings Indication: NSTEMI, New LV dysfunction Access: 6Fr slender right radial artery Catheters: [place] Findings: LM -appears undersized, 50-60% distal stenosis at bifurcation with LAD LAD -small caliber, diffusely diseased, 98% ostial stenosis, 50-60% mid segment stenosis distal vessel tapers to apex. Small D2 without significant disease. Small D3 100% occluded at ostium, partially fills via left to left collaterals Circumflex -medium caliber, 30% ostial, mid segment luminal irregularities. Small OM2 80% ostial stenosis. Small OM3 100% at ostium, fills retrograde via left to left collaterals. Medium left PLB1 98% proximal stenosis with NOEMY I-II flow. Medium left PLB2 patent. RCA -dominant, small to medium caliber, 99% diffuse mid segment disease, distal RCA 100% chronic total occlusion. RPDA and distal RCA fill retrograde via [id number] collaterals LVEDP -30 Arterial Closure: [] Summary: 1. Multivessel coronary artery disease -50-60% distal left main 98% ostial small LAD, 50-60% mid LAD. 100% small D3 99% mid RCA, 100% distal RCA TELLER VAULT with [id number] collaterals Small OM2 80% ostial, 100% small OM3 fills via collaterals, 98% proximal LPLB1 with NOEMY I2 flow (? acute culprit). 2. Elevated intracardiac filling pressure (LVEDP 30) Recommendations: Evaluation for possible CABG. Continue diuresis and GDMT per Dr. Nelson. Hemodynamics Rest Ao:: 120/77/93 Final Ao: 116/78/94 LV: 114/30 Recommendations Recommendations: Medical Therapy and/or Counseling and CABG Radiation Exposure (mGy) 634 Contrast (mls) 25 Anesthesia Moderate [id number] Procedural Complication(s) None Disposition PCU I attest to the content of the Intraoperative Record and any orders documented therein. Any exceptions are noted below. [facility] Card Cath Procedure Codes Cardiac Catheterization Procedure 1: Cardiovascular Cath Procedures: 83999 Coronaries and LHC (+/-LV) Moderate Sedation Procedure 1: Sedation/Anesthesia: 40976 Mod Sedation by the same physician;Init15 Min Child Age 5 & Up PG Care Time/CCT Total # of Minutes Spent Total Time Spent with Patient: Total time spent is greater than 50% in coordination of care (as documented) at patient's floor/unit and/or counseling patient:
--- NOTE | 2024-08-17 14:52 | Electrocardiogram Report ---
Test Reason : Blood Pressure : */* mmHG Vent. Rate : 102 BPM Atrial Rate : 102 BPM P-R Int : 142 ms QRS Dur : 76 ms QT Int : 368 ms P-R-T Axes : 40 -58 232 degrees QTcB Int : 479 ms Sinus tachycardia Possible Left atrial enlargement Left axis deviation Left ventricular hypertrophy ( R in aVL ) Anterior infarct , age undetermined Abnormal ECG No previous ECGs available Confirmed by Kalen Keith ([id number]) on 08/17/2024 2:51:37 PM Referred By: REFERRED SELF Confirmed By: Kalen Keith
--- NOTE | 2024-08-17 15:21 | Electrocardiogram Report ---
Test Reason : Blood Pressure : */* mmHG Vent. Rate : 75 BPM Atrial Rate : 75 BPM P-R Int : 162 ms QRS Dur : 74 ms QT Int : 438 ms P-R-T Axes : 41 -56 250 degrees QTcB Int : 489 ms Normal sinus rhythm Left axis deviation Septal infarct (cited on or before 16-Aug-2024) QTcB >= 480 msec Abnormal ECG When compared with ECG of 16-Aug-2024 16:11, (unconfirmed) No significant change was found Confirmed by Kalen Keith ([id number]) on 08/17/2024 3:21:15 PM Referred By: REFERRED SELF Confirmed By: Kalen Keith
--- NOTE | 2024-08-17 15:24 | Electrocardiogram Report ---
Test Reason : Blood Pressure : */* mmHG Vent. Rate : 75 BPM Atrial Rate : 75 BPM P-R Int : 158 ms QRS Dur : 74 ms QT Int : 410 ms P-R-T Axes : 45 -51 221 degrees QTcB Int : 457 ms Normal sinus rhythm Possible Left atrial enlargement Left axis deviation Minimal voltage criteria for LVH, may be normal variant Anterolateral infarct (cited on or before 16-Aug-2024) Abnormal ECG When compared with ECG of 17-Aug-2024 04:49, (unconfirmed) No significant change Confirmed by Kalen Keith ([id number]) on 08/17/2024 3:24:17 PM Referred By: REFERRED SELF Confirmed By: Kalen Keith
--- NOTE | 2024-08-17 15:37 | Hospitalist Progress Note ---
Date of Service August 17, 2024 Assessment & Plan (1) NSTEMI (non-ST elevated myocardial infarction): Plan: Patient is 59-year-old male with PMH tobacco use presented to ER with c/o exertional CP, SOB, dizziness, bilateral forearm pain x 3 weeks that resolves with rest -In ER afebrile, P: 100, R: 18, BP 165/121, 97% on room air -Negative respiratory biofire panel -D-dimer: 880 -Troponin: 3627 -EKG: Q waves septal anterior and T wave inversion lateral leads per my interpretation -patient taken for cardiac cath, revealed triple vessel disease and need for consideration for CABG Plan: -appreciate cardiology recs -start metoprolol xl 25mg daily -start atorvastatin 80 mg -continue aspirin -will start lisinopril tomorrow (2) Tobacco use: Plan: -Attempting smoking cessation -Denies nicotine patch (3) Acute HFrEF (heart failure with reduced ejection fraction): Plan: -echo revealed significant disease -EF of 20-25% with diastolic dysfunction, correlates with significant CAD Plan: -start GDMT -start metoprolol 25mg today -lisinopril, aldactone, SGLT2 pending -discussed case with cardiology (4) Dyslipidemia: Plan: -continue atorvastatin 80 mg (5) CAP (community acquired pneumonia): Plan -CXR: . Prominent right hilum and bilateral bronchovascular markings mainly on basal aspects suggestive of pulmonary congestion. Mild cardiomegaly. -CTA Chest: No definite sign of pulmonary embolism. Mild pulmonary edema and small bilateral pleural effusions. Cluster of nodules in the right upper lobe, likely due to pneumonia. There are bilateral lower lobe nodules as well. -unclear etiology, patient appears asymptomatic, no cough or fever, negative procal Plan: -stop abx for now -f/u outpatient for repeat scan for resolution Feeding/fluids: heart healthy Analgesia: tylenol Sedation: na Thromboprophylaxis: heparin therapeutic Head up position: na Ulcer prophylaxis: na Glycemic control:na Spontaneous breathing trial: na Bowel care: miralax prn Indwelling catheter removal: na Deescalation of antibiotics: stop abx I spent a total of 55 minutes in direct patient care, including [id number] time with the patient and/or family, reviewing medical records, ordering and reviewing diagnostic tests, and coordinating care with other healthcare providers. This time includes: history taking, physical examination, medical decision making, counseling, ECG interpretation, imaging interpretation, lab interpretation, orders, and education, excluding time spent in the performance of separately billed services. Admission and Anticipated Discharge Date Admission Date: August 16, 2024 Subjective Patient seen and examined at bedside. Patient did okay during the cath. Was able to tell me what the gasoline catalyst operator told him in regards to his results, that he has multivessel disease and may require CABG. No chest pain or shortness of breath at this time Review of Systems Review of Systems: CONSTITUTIONAL: Patient denies fevers, chills, sweats and weight changes. EYES: Patient denies any visual symptoms. EARS, NOSE, AND THROAT: No difficulties with hearing. No symptoms of rhinitis or sore throat. CARDIOVASCULAR: Patient denies chest pains, palpitations, orthopnea and paroxysmal nocturnal dyspnea. RESPIRATORY: No dyspnea on exertion, no wheezing or cough. GI: No nausea, vomiting, diarrhea, constipation, abdominal pain, hematochezia or melena. : No urinary hesitancy or dribbling. No nocturia or urinary frequency. No abnormal urethral discharge. MUSCULOSKELETAL: No myalgias or arthralgias. NEUROLOGIC: No chronic headaches, no seizures. Patient denies numbness, tingling or weakness. PSYCHIATRIC: Patient denies problems with mood disturbance. No problems with anxiety. ENDOCRINE: No excessive urination or excessive thirst. DERMATOLOGIC: Patient denies any rashes or skin changes. Physical Exam Physical Exam: Gen: A&O 3 NAD HEENT: NCAT, EOMI, not icteric. External ears normal. No rhinorrhea. Moist mucous membranes. Neck: Supple, full range of motion, no observable masses, No meningeal sign. Lungs: No Respiratory distress. CV: RRR, no edema. Abdomen: Soft, nondistended, No rebound tenderness. MSK: No joint swelling, no redness. Skin: No rashes, petechiae, lesions. Normal color per patient. Neuro: Normal Gait, Grossly intact. Psych: Appropriate for situation. Results & Data Results & Data Vital Signs (Past 12 Hours) Vital Signs Temp Pulse Pulse Resp BP Pulse Ox O2 Del Method 08/17/24 15:29 36.7 C 67 18 116/77 96 Room Air 08/17/24 15:00 62 16 125/72 96 08/17/24 14:45 65 18 119/72 95 Room Air 08/17/24 14:15 62 16 115/72 98 Room Air 08/17/24 14:00 61 61 20 115/82 96 Room Air 08/17/24 14:00 61 20 115/82 96 Room Air 08/17/24 13:45 67 14 110/82 96 Room Air 08/17/24 13:27 73 18 109/84 96 Room Air 08/17/24 10:59 86 18 125/91 96 Room Air 08/17/24 07:45 Room Air 08/17/24 07:35 36.7 C 71 18 131/84 94 Room Air 08/17/24 05:47 71 Laboratory Results -personally reviewed, elevated D-Dimer and troponin in setting of ND Medications Administered Aspirin (Aspirin 81 Mg Ectab) 81 mg PO [facility] Stop: 09/16/24 08:59 Last Admin: 08/17/24 08:03 Dose: 81 mg Documented By: JONATHAN Atorvastatin Calcium (Atorvastatin 40 Mg Tab) 80 mg PO [facility] Stop: 09/16/24 09:29 Last Admin: 08/17/24 10:24 Dose: 80 mg Documented By: JONATHAN Heparin Sodium/Dextrose (Heparin 71577 Unit/500 Ml D5w) 25,000 units in 500 mls @ 18 mls/hr IV .Q24H PENDING SALE TO [facility]; Protocol Stop: 09/15/24 18:14 Last Titration: 08/17/24 09:28 Dose: 950 units/hr, 19 mls/hr Documented By: RNIke Co-signed By: CA Titration: 08/17/24 07:08 Dose: 900 units/hr, 18 mls/hr Documented By: CF Co-signed By: RNC Titration: 08/17/24 01:14 Dose: 900 units/hr, 18 mls/hr Documented By: CF Co-signed By: KRYSTINA Admin: 08/16/24 18:51 Dose: 850 units/hr, 17 mls/hr Documented By: MATILDA Co-signed By: HUNTER Doxycycline Hyclate 100 mg/ (Dextrose) 100 mls @ 50 mls/hr IV Q12H [facility]END[facility] SALE TO [facility] Stop: 08/22/24 08:14 Last Infusion: 08/17/24 12:25 Dose: Infused Documented By: Admin: 08/17/24 10:25 Dose: 50 mls/hr Documented By: JONATHAN Metoprolol Succinate (Metoprolol Succ 25mg Ext Rel Tab) 25 mg PO QAM [facility] Stop: 09/16/24 09:29 Last Admin: 08/17/24 10:25 Dose: 25 mg Documented By: JONATHAN (5) CAP (community acquired pneumonia) Laterality: right Lung location: upper lobe of lung Qualified Code(s): J18.9 - Pneumonia, unspecified organism
[2024-08-17 16:46] LABS: ANTI-Xa, UFH(UnfractionatedHep < 0.10 IU/ml (0.3-0.7)
--- NOTE | 2024-08-17 16:49 | Communication Note ---
Date of Service: August 17, 2024 Patient with multivessel coronary heart disease not amenable to PCI. Somewhat poor targets for CABG. Patient had been reassessed by the undersigned postcardiac catheterization in his room, 211. Updates provided to the patient and his significant other. Patient agreeable to transfer to [facility] for CT surgery opinion. Attempted to reach out to [facility] but they are currently on a code flow situation or not able to accommodate a transfer due to bed capacity at present. Patient is asymptomatic without any resting angina. Hemodynamically stable. Will continue unfractioned heparin. Attempts underway to transfer his catheterization films to [facility] for review and will discuss potential transfer to that institution or a different institution tomorrow.
[2024-08-17] MEDS: HEPARIN SOD (PORCINE) 1000 UNIT/ML IV ONE (17:30)
[2024-08-17] MEDS ORDERED: cefTRIAXone SODIUM 2,000 MG/50 ML BAG IV SCH (18:00)
[2024-08-17 23:46] LABS: ANTI-Xa, UFH(UnfractionatedHep 0.44 IU/ml (0.3-0.7)
[2024-08-18 06:13] LABS: Hematocrit (blood only) 39.7 % (42.0-52.0); Mean Corpuscular Hemoglobin 28.8 pg (25.0-34.0); Mean Corpuscular Hgb Conc 32.7 g/dL (32.0-36.0); Mean Platelet Volume 11.7 fL (9.4-12.4); Platelet Count 258 K/uL (130-400); RDW Coefficient of Variation 12.3 % (11.5-14.5); RDW Standard Deviation 39.8 fL (36.4-46.3); Red Blood Count 4.51 M/uL (4.70-6.10); White Blood Count 6.47 K/ul (4.8-10.8)
[2024-08-18 06:41] LABS: BUN Creatinine Ratio 12.2 (10-20); Calcium 8.8 mg/dl (8.6-10.3); Creatinine Clr Calc Pharmacy 76.8 ml/min
[2024-08-18 07:18] LABS: ANTI-Xa, UFH(UnfractionatedHep 0.31 IU/ml (0.3-0.7)
--- NOTE | 2024-08-18 09:49 | Cardiology Progress Note ---
Date of Service August 18, 2024 Assessment & Plan (1) NSTEMI (non-ST elevated myocardial infarction): Plan: Cardiac catheterization revealed: Multivessel coronary artery disease -50-60% distal left main 98% ostial small LAD, 50-60% mid LAD. 100% small D3 99% mid RCA, 100% distal RCA JEWEL SAWYER with [id number] collaterals Small OM2 80% ostial, 100% small OM3 fills via collaterals, 98% proximal LPLB1 with NOEMY I2 flow (? acute culprit). -Elevated intracardiac filling pressure (LVEDP 30) --Discussed case with CT surgery at [facility]. Potential bypass targets felt to include the LAD, PDA, OM2 --Discussed case with Dr Kiran Kee credit and collections representative for inpatient cardiology at [facility] who accepts the patient in transfer pending bed availability. Continue aspirin, unfractionated heparin, add metoprolol and atorvastatin. Screening hemoglobin A1c has just come back and is minimally elevated at 5.7% (2) Acute HFrEF (heart failure with reduced ejection fraction): Plan: Patient with left ventricular systolic dysfunction LVEF in the range of 20-25%, diastolic dysfunction evidence of elevated filling pressure on echocardiogram. Mild pulmonary edema on chest CT. He is not overtly volume overloaded on exam and is able to lie supine. Continue metoprolol succinate 25 mg daily. Holding off on medications such as PRESTON/ARB/or Arni to be considered in the near future as systolic blood pressure a little low at 100-112 mm Hg, and patient at risk for developing shock. (3) Dyslipidemia: Plan: LDL 121 mg/dL. Goal for this high risk patient felt to be less than 55 mg/dL. Atorvastatin 80 mg daily. (4) Abnormal CT scan, chest: Plan: Radiology report of CT of the chest describes a 4 mm left lower lobe nodule and a 6 mm right lower lobe nodule as well as a cluster of nodules in the centrilobular distribution surrounding a mild groundglass opacity in the right upper lobe. Patient is a smoker, ceased 3 weeks ago. Clinical presentation suggests myocardial ischemia and CHF rather than clinical pneumonia. Procalcitonin screen was negative. Viral respiratory panel is negative. Will need a follow-up CT in 3 to 6 months per radiology recommendation given ground glass opacity and pulmonary nodules in a smoker. Admission and Anticipated Discharge Date Admission Date: August 16, 2024 Subjective Patient seen in cardiology follow up. No events overnight. No additional angina as long as he remains in bed. Heparin infusing. Telemetry reveals SR in the 60s. Review of Systems Review of Systems: All systems reviewed & are unremarkable except as noted in HPI & below Physical Exam Physical Exam: Temp Pulse Resp BP Pulse Ox O2 Del Method 36.5 C 61 18 112/71 95 Room Air 08/18/24 08:06 08/18/24 08:06 08/18/24 08:06 08/18/24 08:06 08/18/24 08:06 08/18/24 08:06 General: no acute distress and stated age Eyes: conjunctiva are pink and non-injected, sclera clear Neck: normal jugular venous pulse, no hepatojugular reflux Chest: normal shape and normal respiratory effort Lungs: clear to auscultation and percussion Cardiac Exam: - regular heart sounds, no murmurs, rubs, or gallops, no jugular venous distention Abdomen: abdomen soft, non-tender, no abnormal masses and no hepatosplenomegaly Musculoskeletal: no gait disturbance, no weakness Extremities: no edema and no cyanosis Neuro:awake, conversant, follows commands, no focal motor deficits Psych: appropriate affect and insight. Results & Data Vital Signs (Past 12 Hours) Vital Signs Temp Pulse Pulse Resp BP Pulse Ox O2 Del Method 08/18/24 08:06 36.5 C 61 18 112/71 95 Room Air 08/18/24 05:41 58 L 08/18/24 03:13 36.6 C 60 14 116/74 97 Room Air 08/17/24 23:45 67 08/17/24 23:32 36.7 C 61 20 110/73 97 Room Air 08/17/24 22:46 Room Air Laboratory Results CBC 08/18/24 Range/Units 05:37 WBC 6.47 (4.8-10.8) K/ul RBC 4.51 L (4.70-6.10) M/uL Hgb 13.0 L (14.0-18.0) g/dl Hct 39.7 L (42.0-52.0) % Plt Count 258 (130-400) K/uL Comprehensive Metabolic Panel 08/18/24 Range/Units 05:37 Sodium 140 (136-145) mmol/L Potassium 4.0 (3.5-5.1) mmol/L Chloride 103 (98-107) mmol/L Carbon Dioxide 27 (21-32) mmol/L BUN 12 (6-23) mg/dl Creatinine 0.98 (0.6-1.4) mg/dl Glucose 104 H (70-99(Fasting)) mg/dl Calcium 8.8 (8.6-10.3) mg/dl
--- NOTE | 2024-08-18 16:33 | Hospitalist Progress Note ---
Date of Service August 18, 2024 Assessment & Plan (1) NSTEMI (non-ST elevated myocardial infarction): Plan: Patient is 59-year-old male with PMH tobacco use presented to ER with c/o exertional CP, SOB, dizziness, bilateral forearm pain x 3 weeks that resolves with rest -In ER afebrile, P: 100, R: 18, BP 165/121, 97% on room air -Negative respiratory biofire panel -D-dimer: 880 -Troponin: 3627 -EKG: Q waves septal anterior and T wave inversion lateral leads per my interpretation -patient taken for cardiac cath, revealed triple vessel disease and need for consideration for CABG Plan: -appreciate cardiology recs -continue metoprolol xl 25mg daily -continue atorvastatin 80 mg -continue aspirin -will hold further GDMT to avoid hypotension (2) Tobacco use: Plan: -Attempting smoking cessation -Denies nicotine patch (3) Acute HFrEF (heart failure with reduced ejection fraction): Plan: -echo revealed significant disease -EF of 20-25% with diastolic dysfunction, correlates with significant CAD Plan: -start GDMT -continue metoprolol 25mg today -lisinopril, aldactone, SGLT2 on hold as above -discussed case with cardiology (4) Dyslipidemia: Plan: -continue atorvastatin 80 mg (5) CAP (community acquired pneumonia): Plan -CXR: . Prominent right hilum and bilateral bronchovascular markings mainly on basal aspects suggestive of pulmonary congestion. Mild cardiomegaly. -CTA Chest: No definite sign of pulmonary embolism. Mild pulmonary edema and small bilateral pleural effusions. Cluster of nodules in the right upper lobe, likely due to pneumonia. There are bilateral lower lobe nodules as well. -unclear etiology, patient appears asymptomatic, no cough or fever, negative procal Plan: -stop abx for now -f/u outpatient for repeat scan for resolution Feeding/fluids: heart healthy Analgesia: tylenol Sedation: na Thromboprophylaxis: heparin therapeutic Head up position: na Ulcer prophylaxis: na Glycemic control:na Spontaneous breathing trial: na Bowel care: miralax prn Indwelling catheter removal: na Deescalation of antibiotics: none I spent a total of 45 minutes in direct patient care, including [id number] time with the patient and/or family, reviewing medical records, ordering and reviewing diagnostic tests, and coordinating care with other healthcare providers. This time includes: history taking, physical examination, medical decision making, counseling, ECG interpretation, imaging interpretation, lab interpretation, orders, and education, excluding time spent in the performance of separately billed services. Admission and Anticipated Discharge Date Admission Date: August 16, 2024 Subjective Patient seen and examiend at bedside. Patient doing well today, denies chest pain or SOB. Agreeable with plan for transfer for CABG. Discussed procedure at length. Review of Systems Review of Systems: CONSTITUTIONAL: Patient denies fevers, chills, sweats and weight changes. EYES: Patient denies any visual symptoms. EARS, NOSE, AND THROAT: No difficulties with hearing. No symptoms of rhinitis or sore throat. CARDIOVASCULAR: Patient denies chest pains, palpitations, orthopnea and paroxysmal nocturnal dyspnea. RESPIRATORY: No dyspnea on exertion, no wheezing or cough. GI: No nausea, vomiting, diarrhea, constipation, abdominal pain, hematochezia or melena. : No urinary hesitancy or dribbling. No nocturia or urinary frequency. No abnormal urethral discharge. MUSCULOSKELETAL: No myalgias or arthralgias. NEUROLOGIC: No chronic headaches, no seizures. Patient denies numbness, tingling or weakness. PSYCHIATRIC: Patient denies problems with mood disturbance. No problems with anxiety. ENDOCRINE: No excessive urination or excessive thirst. DERMATOLOGIC: Patient denies any rashes or skin changes. Physical Exam Physical Exam: Gen: A&O 3 NAD HEENT: NCAT, EOMI, not icteric. External ears normal. No rhinorrhea. Moist mucous membranes. Neck: Supple, full range of motion, no observable masses, No meningeal sign. Lungs: No Respiratory distress. CV: RRR, no edema. Abdomen: Soft, nondistended, No rebound tenderness. MSK: No joint swelling, no redness. Skin: No rashes, petechiae, lesions. Normal color per patient. Neuro: Normal Gait, Grossly intact. Psych: Appropriate for situation. Results & Data Results & Data Vital Signs (Past 12 Hours) Vital Signs Temp Pulse Pulse Resp BP Pulse Ox O2 Del Method 08/18/24 16:10 36.4 C L 61 18 114/76 95 Room Air 08/18/24 12:59 82 08/18/24 11:59 36.9 C 60 18 107/70 95 Room Air 08/18/24 08:15 Room Air 08/18/24 08:06 36.5 C 61 18 112/71 95 Room Air 08/18/24 05:41 58 L Laboratory Results -personally reviewed, on heparin due to significant CAD, stable Hgb and creatinine Medications Administered Aspirin (Aspirin 81 Mg Ectab) 81 mg PO [facility] Stop: 09/16/24 08:59 Last Admin: 08/18/24 08:16 Dose: 81 mg Documented By: RNIke Admin: 08/17/24 08:03 Dose: 81 mg Documented By: RNIke Atorvastatin Calcium (Atorvastatin 40 Mg Tab) 80 mg PO [facility] Stop: 09/16/24 09:29 Last Admin: 08/18/24 08:16 Dose: 80 mg Documented By: RNIke Admin: 08/17/24 10:24 Dose: 80 mg Documented By: JONATHAN Heparin Sodium/Dextrose (Heparin 90910 Unit/500 Ml D5w) 25,000 units in 500 mls @ 23 mls/hr IV .[id number] [facility]; Protocol Stop: 09/15/24 18:14 Last Titration: 08/18/24 07:32 Dose: 1,150 units/hr, 23 mls/hr Documented By: RNIke Co-signed By: CLIVE Titration: 08/18/24 07:00 Dose: 1,150 units/hr, 23 mls/hr Documented By: ZAC Co-signed By: RNIke Admin: 08/17/24 23:59 Dose: 1,150 units/hr, 23 mls/hr Documented By: ZAC Co-signed By: LAQUITA Admin: 08/17/24 22:49 Dose: Not Given Documented By: Titration: 08/17/24 21:21 Dose: Infused Documented By: CF Co-signed By: LAQUITA Titration: 08/17/24 19:21 Dose: 1,150 units/hr, 23 mls/hr Documented By: RNC Co-signed By: CF Titration: 08/17/24 16:54 Dose: 1,150 units/hr, 23 mls/hr Documented By: RNC Co-signed By: CA Titration: 08/17/24 09:28 Dose: 950 units/hr, 19 mls/hr Documented By: RNC Co-signed By: CA Titration: 08/17/24 07:08 Dose: 900 units/hr, 18 mls/hr Documented By: ZAC Co-signed By: JONATHAN Titration: 08/17/24 01:14 Dose: 900 units/hr, 18 mls/hr Documented By: CF Co-signed By: KRYSTINA Admin: 08/16/24 18:51 Dose: 850 units/hr, 17 mls/hr Documented By: MATILDA Co-signed By: HUNTER Metoprolol Succinate ([facility]oprolol Succ 25mg Ext Rel Tab) [facility] [place]: 09/16/24 09:29 Last Admin: 08/18/24 08:16 Dose: 25 mg Documented By: RNIke Admin: 08/17/24 10:25 Dose: 25 mg Documented By: RNIke (5) CAP (community acquired pneumonia) Laterality: right Lung location: upper lobe of lung Qualified Code(s): J18.9 - Pneumonia, unspecified organism
--- NOTE | 2024-08-18 20:45 | Discharge Summary ---
Discharge Summary Date of Service August 18, 2024 Principal Dx & Hospital Course #1 = Principal Diagnosis (1) NSTEMI (non-ST elevated myocardial infarction): Patient is 59-year-old male with PMH tobacco use presented to ER with c/o exertional CP, SOB, dizziness, bilateral forearm pain x 3 weeks that resolves with rest -In ER afebrile, P: 100, R: 18, BP 165/121, 97% on room air -Negative respiratory biofire panel -D-dimer: 880 -Troponin: 3627 -EKG: Q waves septal anterior and T wave inversion lateral leads per my interpretation -patient taken for cardiac cath, revealed triple vessel disease and need for consideration for CABG Plan: -appreciate cardiology recs -continue metoprolol xl 25mg daily -continue atorvastatin 80 mg -continue aspirin -will hold further GDMT to avoid hypotension (2) Tobacco use: -Attempting smoking cessation -Denies nicotine patch (3) Acute HFrEF (heart failure with reduced ejection fraction): -echo revealed significant disease -EF of 20-25% with diastolic dysfunction, correlates with significant CAD Plan: -start GDMT -continue metoprolol 25mg today -lisinopril, aldactone, SGLT2 on hold as above -discussed case with cardiology (4) Dyslipidemia: -continue atorvastatin 80 mg (5) CAP (community acquired pneumonia): Plan -CXR: . Prominent right hilum and bilateral bronchovascular markings mainly on basal aspects suggestive of pulmonary congestion. Mild cardiomegaly. -CTA Chest: No definite sign of pulmonary embolism. Mild pulmonary edema and small bilateral pleural effusions. Cluster of nodules in the right upper lobe, likely due to pneumonia. There are bilateral lower lobe nodules as well. -unclear etiology, patient appears asymptomatic, no cough or fever, negative pr ocal Plan: -stop abx for now -f/u outpatient for repeat scan for resolution Notes For Next Care Provider Patient is 59-year-old male with PMH tobacco use presented to ER with c/o exertional CP x 3 weeks. In the ED, noted to have an NSTEMI and concern for significant disease, admitted to medicine. Cardiology consulted, cath performed showing severe multivessel CAD that requires CABG evaluation. Started on metoprolol, aspirin, statin, and medically stable for transfer to higher level of care for CABG evaluation. Medication Changes From Visit -aspirin, statin, metoprolol Admission HPI Per Admitting Provider Patient is 59-year-old male with PMH tobacco use presented to ER with c/o exertional CP x 3 weeks. States has not been to the doctor in over 7 years. Prior to that he denies any known diagnosis of HTN or dyslipidemia or diabetes. Reports exertional shortness of breath and anterior chest pain with associated dizziness and bilateral forearm aching that occurs with exertion and resolves after 5 minutes of rest. 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 States over the past 3 weeks symptoms has progressed and past couple days getting symptoms with simple ADLs such as dressing himself. Symptoms still resolved in approximately 5 minutes after rest. Denies any active CP while in ER. Denies fever/chills, diaphoresis, N/V/D/C, CROSS, syncope, vision changes, neck pain, palpitations, cough, sore throat, choking, otalgia, rhinorrhea, abdominal pain, paresthesias, extremity weakness, extremity edema, rashes, urinary symptoms. Discharge Exam Gen: A&O 3 NAD HEENT: NCAT, EOMI, not icteric. External ears normal. No rhinorrhea. Moist mucous membranes. Neck: Supple, full range of motion, no observable masses, No meningeal sign. Lungs: No Respiratory distress. CV: RRR, no edema. Abdomen: Soft, nondistended, No rebound tenderness. MSK: No joint swelling, no redness. Skin: No rashes, petechiae, lesions. Normal color per patient. Neuro: Normal Gait, Grossly intact. Psych: Appropriate for situation. Updated Medication List Medication Instructions Recorded Confirmed Type aspirin 81 mg tablet,delayed 81 mg PO QAM #30 tabs 08/18/24 Rx release atorvastatin 40 mg tablet 80 mg (2 x 40 mg) PO QAM #60 tabs 08/18/24 Rx metoprolol succinate 25 mg 25 mg PO QAM #30 tabs 08/18/24 Rx tablet,extended release 24 hr nitroglycerin 0.4 mg sublingual 0.4 mg sublingual Q5M PRN chest 08/18/24 Rx tablet (Nitrostat) pain #30 tabs Hospital Stay Data Consultations 08/16/24 18:12 ED Decision to Admit Stat 08/16/24 22:21 Consult Cardiology Routine Procedures Performed Operation Date: 08/17/24 13:00 Actual Procedures p Cineradiography w/Routine Exam - Elijah Brunson MD p Cath, Left with Cors and Vent - Elijah Brunson MD Diagnostic Imagining Performed 08/16/24 17:29 CT for pulmonary embolism PE [CT angio chest PE protocol] Stat 08/17/24 10:28 CL Cath Imgs for PACS use only Routine Pending Results Patient Have Any Pending Studies at Discharge: Yes Discharge Instructions Given to Patient (Per Discharging Provider) 1. Transferred to [facility] for CABG. Total Time Total Time Spent Total Time Spent (In Minutes): I spent a total of 35 minutes in direct patient care, including [id number] time with the patient and/or family, reviewing medical records, ordering and reviewing diagnostic tests, and coordinating care with other healthcare providers. This time includes: history taking, physical examination, medical decision making, counseling, ECG interpretation, imaging interpretation, lab interpretation, orders, and education, excluding time spent in the performance of separately billed services.
== END 2024-08-18 20:25 | disposition short-term general hospital (02) | DRG 280 ==
LOC: ED 15:51 → SUATTDRO 18:55 → 2E 18:55